=== PATIENT | male | born 1955 | race American Indian/Alaskan Native ===

== ENCOUNTER 2019-11-23 12:20 | Emergency (ER) | payer OTHER ==
[~2019-11-23] VITALS: Ht 180.3 cm; Wt 117.9 kg
[2019-11-23 12:20] VITALS: BP 108/73
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
[2019-11-23 12:33] VITALS: BP 108/73
[2019-11-23] MEDS ORDERED: MORPHINE SULFATE IV STA (12:48)
[2019-11-23] MEDS ORDERED: NS 1000ML 1,000 ML IV STA (12:48)
--- NOTE | 2019-11-23 13:11 | PCM.EKG ---
[facility] Test Date: 2019-11-23 Test Time: 13:04:53 Pat Name: LIZ CONKLIN Department: Patient ID: [facility]-[id number] Room: Gender: M Dowel Pin Man: RT : 1955 Requested By: NATALIE JENKINS Order Number: [id number] Reading MD: Natalie JENKINS Measurements Intervals [place] Rate: 77 P: 63 MD: 158 QRS: -55 QRSD: 133 T: 19 QT: 406 QTc: 460 Interpretive Statements Sinus rhythm Probable left atrial enlargement Right bundle branch block No previous ECG available for comparison Electronically Signed On 11-24-2019 3:05:38 CDT by Natalie JENKINS Please click the below link to view image of tracing.
[2019-11-23 13:14] VITALS: BP 135/61
[2019-11-23 13:14] LABS: BASOPHIL % 0.4 % (0.0-0.2); EOSINOPHIL # 0.1 10^3/uL (0.0-0.2); EOSINOPHIL % 1.1 % (0.0-5.0); LYMPHOCYTES % 23.3 % (24.0-44.0); MONOCYTES # 0.6 10^3/uL (0.3-0.8); MONOCYTES % 6.3 % (5.0-12.0); NEUTROPHIL # 6.3 10^3/uL (1.8-7.7); NEUTROPHILS % 67.1 % (41.0-85.0); PLATELET COUNT 202 10^3/uL (150-400); RED CELL DISTRIBUTION WIDTH 13.2 % (11.5-14.5)
[2019-11-23] MEDS ORDERED: NS 1000ML 1,000 ML ONE (13:19)
[2019-11-23] MEDS ORDERED: MORPHINE SULFATE ONE (13:19)
[2019-11-23 13:31] LABS: CALCIUM 8.9 mg/dL (8.4-10.5); CARBON DIOXIDE 27.4 mmol/L (20.0-32)
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
[2019-11-23 14:29] VITALS: BP 125/71
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
[2019-11-23 15:29] VITALS: BP 122/84
== END 2019-11-23 16:00 | disposition home or self-care (01) ==
LOC: ER 12:20
DX: S32.048A Other fracture of fourth lumbar vertebra, initial encounter for closed fracture (principal); S10.93XA Contusion of unspecified part of neck, initial encounter; S30.1XXA Contusion of abdominal wall, initial encounter; E11.9 Type 2 diabetes mellitus without complications; I10 Essential (primary) hypertension; V49.9XXA Car occupant (driver) (passenger) injured in unspecified traffic accident, initial encounter; Y93.89 Activity, other specified; Y92.89 Other specified places as the place of occurrence of the external cause; Y99.8 Other external cause status
CPT/HCPCS: 36415; 70450; 71260; 72125; 72128; 72131; 74177; 80053; 85025; 85610; 85730; 93005; 96374; 99285; J2270; J7030; Q9965